=== PATIENT | female | born 1970 | race Native Hawaiian/Other Pacific Islander ===

== ENCOUNTER 2017-02-18 15:10 | Emergency (ER) | payer OTHER ==
[~2017-02-18] VITALS: Ht 165.1 cm; Wt 70.3 kg
[2017-02-18 16:00] VITALS: TEMP 97.5
[2017-02-18 17:21] LABS: PLATELET COUNT 301 K/uL (152-353)
[2017-02-18 17:46] LABS: POTASSIUM 3.9 mmol/L (3.6-5.2); SODIUM 139 mmol/L (136-145)
[2017-02-18 18:35] VITALS: BP 142/82
== END 2017-02-18 18:35 | disposition home or self-care (01) ==
LOC: ED 15:10
PROVIDERS: Specialist
DX: R10.84 Generalized abdominal pain (principal)
CPT/HCPCS: 80048; 80307; 81000; 85027; 96365; 96374; 96375; 99284; G0479; J1885; J2175; J2550